=== PATIENT | female | born 1960 | race Caucasian/White ===

== ENCOUNTER 2022-01-12 13:26 | Emergency (ER) | payer MEDICARE, MEDICAID ==
[~2022-01-12] VITALS: Ht 152 cm; Wt 43.0 kg
[2022-01-12 14:07] LABS: BASOPHILS % (AUTO) 0 % (0-10); EOSINOPHILS % (AUTO) 0 % (0-10); HEMATOCRIT 42 % (35-52); HEMOGLOBIN 14.6 g/dL (11.5-16.0); LYMPHOCYTES % (AUTO) 28 % (12-44); MEAN CORPUSCULAR HEMOGLOBIN 29 pg (25-34); MEAN CORPUSCULAR HGB CONC 35 g/dL (32-36); MEAN CORPUSCULAR VOLUME 83 fL (80-99); MEAN PLATELET VOLUME 10.8 fL (9.0-12.2); MONOCYTES # (AUTO) 1.1 10^3/uL (0.0-1.0); MONOCYTES % (AUTO) 8 % (0-12); NEUTROPHILS # (AUTO) 9.3 10^3/uL (1.8-7.8); NEUTROPHILS % (AUTO) 64 % (42-75); PLATELET COUNT 432 10^3/uL (130-400); WHITE BLOOD COUNT 14.7 10^3/uL (4.3-11.0)
[2022-01-12] MEDS ORDERED: KETOROLAC 30 MG/ML VIAL IVP STA (14:12)
[2022-01-12] MEDS ORDERED: NS IV 1000 ML 1,000 ML IV STA (14:12)
--- NOTE | 2022-01-12 14:25 | Diagnostic Imaging Report ---
INDICATION: Chest pain. FINDINGS: Focal peripheral airspace-like opacity in the mid right lung laterally is present, in the setting of pain suspect for small focus of pneumonia. It does warrant radiographic follow-up with repeat PA and lateral chest radiograph within two weeks' time suggested. Also, clinical correlation to exclude any recent injury. There are some old healed right rib deformities which are clearly chronic. There is air trapping and COPD, chronic. There is no failure pattern. IMPRESSION: 1. Focal patchy opacity in the right mid lung laterally, in the setting of pain likely reflecting pneumonia but warranting radiographic follow-up. 2. Underlying air trapping with no failure pattern or acute pleural pathology. Dictated by: Dictated on workstation # [id number]
--- NOTE | 2022-01-12 14:30 | Diagnostic Imaging Report ---
PROCEDURE: CT head without contrast. TECHNIQUE: Multiple contiguous axial images were obtained through the brain without the use of intravenous contrast. Auto Exposure Controls were utilized during the CT exam to meet ALARA standards for radiation dose reduction. INDICATION: Headache. COMPARISON: No prior studies are available for comparison. FINDINGS: There is a large area of encephalomalacia in the right temporal lobe as well as the posterior parietal and occipital lobes consistent with prior infarct. There also appears to be an old infarct in the right caudate head. No sulcal effacement or midline shift is identified. No acute intra-axial or extra-axial hemorrhage is detected. Cisterns are patent. Visualized paranasal sinuses are clear. There are postop changes involving the right orbital floor. IMPRESSION: Chronic changes. No acute intracranial process is detected. Dictated by: Dictated on workstation # [id number]
[2022-01-12 14:33] LABS: ALANINE AMINOTRANSFERASE 13 U/L (0-55); ALKALINE PHOSPHATASE 100 U/L (40-136); BILIRUBIN,TOTAL 0.4 MG/DL (0.1-1.0); BUN/CREATININE RATIO 22; CALCIUM 9.2 MG/DL (8.5-10.1); CARBON DIOXIDE 24 MMOL/L (21-32); CHLORIDE 88 MMOL/L (98-107); CREATININE SERUM 1.65 MG/DL (0.60-1.30); GFR ESTIMATED 36; GLUCOSE 88 MG/DL (70-105); POTASSIUM 3.4 MMOL/L (3.6-5.0); SODIUM 130 MMOL/L (135-145)
[2022-01-12 14:34] LABS: ALBUMIN 4.3 GM/DL (3.2-4.5); LIPASE 45 U/L (8-78); TOTAL PROTEIN 8.5 GM/DL (6.4-8.2)
[2022-01-12 14:35] LABS: PROTHROMBIN TIME PATIENT 13.2 SEC (12.2-14.7)
[2022-01-12 14:43] LABS: BAND NEUTROPHILS 0 %; BASOPHILS % (MANUAL) 0 %; EOSINOPHILS % (MANUAL) 1 %; LYMPHOCYTES % (MANUAL) 31 %; MONOCYTES % (MANUAL) 9 %; NEUTROPHILS % (MANUAL) 59 %
--- NOTE | 2022-01-12 14:50 | ED Chest Pain ---
General Chief Complaint: Chest Pain Stated Complaint: CHEST PAIN Nursing Triage Note: PT WAS BROUGHT OVER FROM [facility] BY HER MENTAL HEALTH COUSELOR AFTER SHE TOLD HER SHE HAS BEEN HAVING CHEST PAIN AND CHEST WALL PAIN X 3 DAYS. Source: patient History of Present Illness Date Seen by Provider: Jan 12, 2022 Time Seen by Provider: 13:28 Initial Comments 61-year-old female presenting with complaints of generalized chest pain and body aches for over 3 days. She had told her mental health counselor today that she thought she was having a heart attack because her symptoms have been going on fo r over 3 days. Her mental health provider immediately brought her here to the emergency department from the [facility]. She states that she has had prior strokes and heart attacks at the same time in the past as well as high cholesterol. Previously when she has had the generalized body aches it was due to atorvastatin but they had taken her off of that and put her on something different. She denies having cough, fever, chills, nausea, vomiting, diarrhea. Timing/Duration: 2-3 days Severity/Quality: moderate, sharp Location: central Radiation: no radiation Activities at Onset: none Prior CP/Workup: heart attack ASA po BOBCAT OPERATOR: No NTG SL BOBCAT OPERATOR: No Associated Symptoms: No abdominal pain, No back pain, No diaphoresis, No dizziness, No edema; fatigue; No fever/chills, No headache, No heartburn, No nausea/vomiting, No rash; shortness of breath; No swelling/lump in chest, No syncope, No weakness Allergies and Home Medications Allergies Coded Allergies: morphine (Verified Allergy, Unknown, 01/12/22) Patient Home Medication List Home Medication List Reviewed: Yes Azithromycin (Azithromycin) 500 Mg Tablet, 500 MG PO DAILY Prescribed by: ELIZABETH OCONNELL on 01/12/22 1632 Review of Systems Review of Systems Constitutional: see HPI; No diaphoresis EENTM: No Blurred Vision, No Double Vision, No Nose Congestion Respiratory: Denies Cough Cardiovascular: See HPI, Chest Pain; Denies Edema Gastrointestinal: No Symptoms Reported Genitourinary: No Symptoms Reported Musculoskeletal: muscle pain (Generalized muscle and body aches) Skin: No rash Psychiatric/Neurological: Anxiety; Denies Headache Past Ezmjqgm-Ovswsc-Vscesm Hx Patient Social History Tobacco Use?: No Use of E-Cig and/or Vaping dev: No Substance use?: Yes Substance type: Marijuana Substance frequency: Daily Alcohol Use?: No Pt feels they are or have been: No Immunizations Up To Date First/Initial COVID19 Vaccinat: 2020 COVID19 Vaccine Water Pollution Control Inspector: ADRIEN Past Medical History Surgery/Hospitalization HX: Hypertension, coronary artery disease, vascular disease Physical Exam Vital Signs Vital Signs - First Documented 01/12/22 13:33 Temp 36.8 Pulse 99 Resp 18 B/P (MAP) 113/89 (97) Pulse Ox 100 O2 Delivery Room Air Capillary Refill : Less Than 3 Seconds Height, Weight, BMI Height: '" Weight: lbs. oz. kg; 18.00 BMI Method: General Appearance: Anxious, Chronically ill, Thin HEENT: PERRL/EOMI, Pharynx Normal Neck: Full Range of Motion, Normal Inspection, Non Tender, Supple Respiratory: Chest Non Tender, Lungs Clear, Normal Breath Sounds, No Accessory Muscle Use, No Respiratory Distress Cardiovascular: Regular Rate, Rhythm, Normal Peripheral Pulses Gastrointestinal: Normal Bowel Sounds, No Pulsatile Mass, Non Tender, Soft Rectal: Deferred Extremity: Normal Capillary Refill, Normal Inspection, No Pedal Edema Neurologic/Psychiatric: Alert, Oriented x3, orchestra musician II-XII Norm as Tested Skin: Normal Color, Warm/Dry; No Rash Progress/Results/Core Measures Results/Orders Lab Results Laboratory Tests Test 01/12/22 13:40 01/12/22 15:16 Range/Units White Blood Count 14.7 H 4.3-11.0 10^3/uL Red Blood Count 5.00 3.80-5.11 10^6/uL Hemoglobin 14.6 11.5-16.0 g/dL Hematocrit 42 35-52 % Mean Corpuscular Volume 83 80-99 fL Mean Corpuscular Hemoglobin 29 25-34 pg Mean Corpuscular Hemoglobin Concent 35 32-36 g/dL Red Cell Distribution Width 12.1 10.0-14.5 % Platelet Count 432 H 130-400 10^3/uL Mean Platelet Volume 10.8 9.0-12.2 fL Immature Granulocyte % (Auto) 1 % Neutrophils (%) (Auto) 64 42-75 % Lymphocytes (%) (Auto) 28 12-44 % Monocytes (%) (Auto) 8 0-12 % Eosinophils (%) (Auto) 0 0-10 % Basophils (%) (Auto) 0 0-10 % Neutrophils # (Auto) 9.3 H 1.8-7.8 10^3/uL Lymphocytes # (Auto) 4.0 1.0-4.0 10^3/uL Monocytes # (Auto) 1.1 H 0.0-1.0 10^3/uL Eosinophils # (Auto) 0.0 0.0-0.3 10^3/uL Basophils # (Auto) 0.0 0.0-0.1 10^3/uL Immature Granulocyte # (Auto) 0.1 0.0-0.1 10^3/uL Neutrophils % (Manual) 59 % Lymphocytes % (Manual) 31 % Monocytes % (Manual) 9 % Eosinophils % (Manual) 1 % Basophils % (Manual) 0 % Band Neutrophils 0 % Prothrombin Time 13.2 12.2-14.7 SEC INR Comment 1.0 0.8-1.4 Activated Partial Thromboplast Time 31 24-35 SEC Sodium Level 130 L 135-145 MMOL/L Potassium Level 3.4 L 3.6-5.0 MMOL/L Chloride Level 88 L 98-107 MMOL/L Carbon Dioxide Level 24 21-32 MMOL/L Anion Gap 18 H 5-14 MMOL/L Blood Urea Nitrogen 37 H 7-18 MG/DL Creatinine 1.65 H 0.60-1.30 MG/DL Estimat Glomerular Filtration Rate 36 BUN/Creatinine Ratio 22 Glucose Level 88 70-105 MG/DL Calcium Level 9.2 8.5-10.1 MG/DL Corrected Calcium 9.0 8.5-10.1 MG/DL Magnesium Level 2.0 1.6-2.4 MG/DL Total Bilirubin 0.4 0.1-1.0 MG/DL Aspartate Amino Transf (AST/SGOT) 23 5-34 U/L Alanine Aminotransferase (ALT/SGPT) 13 0-55 U/L Alkaline Phosphatase 100 40-136 U/L Troponin I < 0.30 <0.30 NG/ML Pro-B-Type Natriuretic Peptide 3685.0 H <125.0 PG/ML Total Protein 8.5 H 6.4-8.2 GM/DL Albumin 4.3 3.2-4.5 GM/DL Lipase 45 8-78 U/L Serum Alcohol < 10 <10 MG/DL Urine Color YELLOW Urine Clarity CLOUDY Urine pH 6.0 5-9 Urine Specific [place] 1.020 1.016-1.022 Urine Protein NEGATIVE NEGATIVE Urine Glucose (UA) NEGATIVE NEGATIVE Urine Ketones 1+ H NEGATIVE Urine Nitrite NEGATIVE NEGATIVE Urine Bilirubin 1+ H NEGATIVE Urine Urobilinogen 0.2 < = 1.0 MG/DL Urine Leukocyte Esterase NEGATIVE NEGATIVE Urine RBC (Auto) 2+ H NEGATIVE Urine RBC 0-2 /HPF Urine WBC 0-2 /HPF Urine Squamous Epithelial Cells 5-10 /HPF Urine Crystals NONE /LPF Urine Bacteria FEW H /HPF Urine Casts PRESENT /LPF Urine Hyaline Casts 5-10 H /LPF Urine Mucus SMALL H /LPF Urine Culture Indicated NO Urine Opiates Screen POSITIVE H NEGATIVE Urine Oxycodone Screen NEGATIVE NEGATIVE Urine Methadone Screen NEGATIVE NEGATIVE Urine Propoxyphene Screen NEGATIVE NEGATIVE Urine Barbiturates Screen NEGATIVE NEGATIVE Ur Tricyclic Antidepressants Screen NEGATIVE NEGATIVE Urine Phencyclidine Screen NEGATIVE NEGATIVE Urine Amphetamines Screen NEGATIVE NEGATIVE Urine Methamphetamines Screen NEGATIVE NEGATIVE Urine Benzodiazepines Screen NEGATIVE NEGATIVE Urine Cocaine Screen NEGATIVE NEGATIVE Urine Cannabinoids Screen POSITIVE H NEGATIVE My Orders Orders - ELIZABETH OCONNELL MD Cbc With Automated Diff (01/12/22 13:56) Magnesium (01/12/22 13:56) Chest 1 View Ap/Pa Only (01/12/22 13:56) Ekg Tracing (01/12/22 13:56) Comprehensive Metabolic Panel (01/12/22 13:56) Protime With Inr (01/12/22 13:56) Partial Thromboplastin Time (01/12/22 13:56) O2 (01/12/22 13:56) Monitor-Rhythm Ecg Trace Only (01/12/22 13:56) Ed Iv/Invasive Line Start (01/12/22 13:56) Lipase (01/12/22 13:56) Troponin I Fs (01/12/22 13:56) Probnp Fs (01/12/22 13:56) Ua Culture If Indicated (01/12/22 13:56) Drug Screen Stat (Urine) (01/12/22 13:56) Alcohol (01/12/22 13:56) Ct Head Wo (01/12/22 13:56) Manual Differential (01/12/22 13:40) Ns Iv 1000 Ml (Sodium Chloride 0.9%) (01/12/22 14:12) Ketorolac Injection (Toradol Injection) (01/12/22 14:12) Ceftriaxone 1 Gm Pre-Mix (Rocephin 1 Gm (01/12/22 15:45) Azithromycin Tablet (Zithromax Tablet) (01/12/22 15:45) Vital Signs/I&O 01/12/22 01/12/22 13:33 16:30 Temp 36.8 36.8 Pulse 99 83 Resp 18 18 B/P (MAP) 113/89 (97) 128/68 Pulse Ox 100 100 O2 Delivery Room Air Room Air Blood Pressure Mean: 97 Progress Progress Note #1: Progress Note Check labs and chest x-ray as well as electrocardiogram and cardiac enzymes. Since she was concerned that she has had stroke and heart attack while evaluate CT scan of her head in addition to the cardiac enzymes and electrocardiogram. Give IV fluid normal saline 1 L bolus for hydration to see if that might help with her body aches Progress Note #2: Progress Note Labs show mild elevation of her white blood cell count with a left shift. Her chemistry panel has mild hyponatremia with a sodium of 130. Her creatinine is slightly elevated at 1.65. Her troponin is less than 0.3. She does have elevation of her proBNP to 3685. CT scan of the head did not show an acute process. Chest x-ray shows patchy infiltrate in the right midlung. Will treat for pneumonia as a source of her chest pain and body aches. Her oxygen saturation has been staying 99 to 100% on room air. Encourage fluids and hydration at home. Take full course of antibiotics and follow-up with her regular providers. Initial ECG Impression Date: Jan 12, 2022 Initial ECG Impression Time: 13:34 Initial ECG Rate: 98 Initial ECG Rhythm: Normal Sinus Initial ECG Comparisson: No Previous ECG Available Comment Normal sinus rhythm with a heart rate of 98 bpm. UT interval [address] elevation. There is artifact on the tracing. QT interval 370 ms with a QTc interval 426 ms. There is no prior tracing available for comparison. Diagnostic Imaging Diagonstic Imaging: Xray Plain Films/CT/US/NM/MRI: chest Comments [facility] [place], [place] NAME: JANE CARRASCO [facility] REC#: [id number] PT STATUS: REG ER : 1960 PHYSICIAN: ELIZABETH OCONNELL MD ADMIT DATE: 01/12/22/ER FS Draft Date of Exam:01/12/22 CHEST 1 VIEW AP/PA ONLY INDICATION: Chest pain. FINDINGS: Focal peripheral airspace-like opacity in the mid right lung laterally is present, in the setting of pain suspect for small focus of pneumonia. It does warrant radiographic follow-up with repeat PA and lateral chest radiograph within two weeks' time suggested. Also, clinical correlation to exclude any recent injury. There are some old healed right rib deformities which are clearly chronic. There is air trapping and COPD, chronic. There is no failure pattern. IMPRESSION: 1. Focal patchy opacity in the right mid lung laterally, in the setting of pain likely reflecting pneumonia but warranting radiographic follow-up. 2. Underlying air trapping with no failure pattern or acute pleural pathology. Dictated on workstation # [id number] Dict: 01/12/22 1419 Trans: 01/12/22 1425 [id number] Interpreted by: ELSA REINOSO Electronically signed by: Reviewed: Reviewed by Wa Diagonstic Imaging: CT Plain Films/CT/US/NM/MRI: head Comments [facility]. [place], [place] NAME: JANE CARRASCO [facility] REC#: [id number] PT STATUS: REG ER : 1960 PHYSICIAN: ELIZABETH OCONNELL MD ADMIT DATE: 01/12/22/ER FS Draft Date of Exam:01/12/22 CT HEAD WO PROCEDURE: CT head without contrast. TECHNIQUE: Multiple contiguous axial images were obtained through the brain without the use of intravenous contrast. Auto Exposure Controls were utilized during the CT exam to meet ALARA standards for radiation dose reduction. INDICATION: Headache. COMPARISON: No prior studies are available for comparison. FINDINGS: There is a large area of encephalomalacia in the right temporal lobe as well as the posterior parietal and occipital lobes consistent with prior infarct. There also appears to be an old infarct in the right caudate head. No sulcal effacement or midline shift is identified. No acute intra-axial or extra-axial hemorrhage is detected. Cisterns are patent. Visualized paranasal sinuses are clear. There are postop changes involving the right orbital floor. IMPRESSION: Chronic changes. No acute intracranial process is detected. Dictated on workstation # [id number] Dict: 01/12/22 1425 Trans: 01/12/22 1430 [id number] Interpreted by: GIOVANNA SIM MD Electronically signed by: Reviewed: Reviewed by Me Departure Impression Primary Impression: Right middle lobe pneumonia Qualified Codes: J18.9 - Pneumonia, unspecified organism Additional Impression: Generalized body aches Disposition: HOME, SELF-CARE Condition: Stable Departure-Patient Inst. Decision time for Depature: 16:22 Referrals: [facility] Patient Instructions: Fatigue ED, Pneumonia, Adult ED Add. Discharge Instructions: Stay well hydrated and drink plenty of water and electrolyte drinks. Take the full course of antibiotics to treat for pneumonia. Check back with clinic for continued concerns All discharge instructions reviewed with patient and/or family. Voiced understanding. Scripts Azithromycin (Azithromycin) 500 Mg Tablet 500 MG PO DAILY for pneumonia for 4 Days, #4 TAB 0 Refills Prov: ELIZABETH OCONNELL MD 01/12/22 ELIZABETH OCONNELL MD Jan 12, 2022 14:50
[2022-01-12 15:36] LABS: CLARITY,URINE CLOUDY; COLOR,URINE YELLOW; GLUCOSE, URINE (UA) NEGATIVE (NEGATIVE); KETONES,URINE 1+ (NEGATIVE); LEUKOCYTE ESTERASE ,URINE NEGATIVE (NEGATIVE); NITRITE,URINE NEGATIVE (NEGATIVE); PROTEIN,URINE NEGATIVE (NEGATIVE)
[2022-01-12] MEDS ORDERED: cefTRIAXone 1 GM PRE-MIX 50 ML IV STA (15:45)
[2022-01-12] MEDS ORDERED: AZITHROMYCIN 250 MG TAB (ZITHROMAX) PO STA (15:45)
[2022-01-12 15:54] LABS: BACTERIA,URINE FEW /HPF; RBC,URINE 0-2 /HPF; WBC,URINE 0-2 /HPF
[2022-01-12 15:55] LABS: BILIRUBIN,URINE 1+ (NEGATIVE)
[2022-01-12 15:58] LABS: AMPHETAMINE SCREEN, URINE NEGATIVE (NEGATIVE); BARBITURATE SCREEN URINE NEGATIVE (NEGATIVE); BENZODIAZEPINES SCREEN URINE NEGATIVE (NEGATIVE); CANNABINOID SCREEN, URINE POSITIVE (NEGATIVE); COCAINE SCREEN URINE NEGATIVE (NEGATIVE); METHADONE STAT NEGATIVE (NEGATIVE); OPIATE SCREEN URINE POSITIVE (NEGATIVE); OXYCODONE STAT NEGATIVE (NEGATIVE); PROPOXYPHENE STAT NEGATIVE (NEGATIVE); TRICYCLIC ANTIDEPRESSANTS SCRE NEGATIVE (NEGATIVE)
[2022-01-12 16:30] VITALS: BP 128/68
[2022-01-12] MEDS ORDERED: AZIT500T9 PO (16:32)
== END 2022-01-12 16:38 | disposition home or self-care (01) ==
LOC: ER FS 13:28
DX: J18.1 Lobar pneumonia, unspecified organism (principal); R52 Pain, unspecified; D72.829 Elevated white blood cell count, unspecified; E87.1 Hypo-osmolality and hyponatremia; R79.89 Other specified abnormal findings of blood chemistry; R79.0 Abnormal level of blood mineral; Z28.311 Partially vaccinated for COVID-19
CPT/HCPCS: 36415; 70450; 71045; 80053; 80306; 81000; 83690; 83735; 83880; 84484; 85007; 85027; 85610; 85730; 93041; G0480; 80320; 93005